=== PATIENT | male | born 1980 ===

== ENCOUNTER 2021-04-18 23:34 | Inpatient (IN) | payer OTHER ==
--- OUTSIDE RECORDS SUMMARY | 2021-04-18 23:38 | XMS REPORT | Continuity of Care Document ---
:1980 Author Organization [facility] Address [address] [place] [address] Dr. Obando [address] [place] [id number] Care Team Providers Name Role Phone Unavailable Unavailable Unavailable Payers Payer Name Policy Type Policy Number Effective Date Expiration Date S chanelle MEDICARE A B [id number] 2007 00:00:00 MEDICAID OF [place] [id number] 2011 00:00:00 Problems This patient has no known problems. Allergies, Adverse Reactions, Alerts This patient has no known allergies or adverse reactions. Medications This patient has no known medications. Procedures This patient has no known procedures. Encounters Start End Encounter Admission Attending Care Care Encounter Source Date/Time Date/Time Type Type Clinicians Facility Department ID 2020-06-30 2020-06-30 Outpatient [facility] [id number] SLE 00:00:00 00:00:00 2020-06-09 2020-06-09 Outpatient [facility] [id number] SLE 00:00:00 00:00:00 Results This patient has no known results.
[2021-04-19 01:40] LABS: SARS-COV-2 RT PCR POSITIVE (NEGATIVE)
[2021-04-19] MEDS ORDERED: NA CHLORIDE 0.9% 1,000 ML ONE (02:10)
[2021-04-19 02:47] LABS: Absolute Lymphocytes (CBC) 0.7 K/uL (0.7-4.9); Hematocrit 43.2 % (39.6-49.0); Lymphocytes % 12.1 % (15.3-44.8); MPV 7.3 fL (7.6-11.3); RBC Red Blood Cell Count 4.39 M/uL (4.33-5.43)
[2021-04-19 02:48] LABS: Protime INR 1.06
[2021-04-19 03:00] LABS: ALT/SGPT 28 U/L (12-78); AST/SGOT 17 U/L (15-37); Albumin 3.4 g/dL (3.4-5.0); Alkaline Phosphatase 73 U/L (45-117); BUN Blood Urea Nitrogen 12 mg/dL (7-18); Bicarbonate 26 mmol/L (21-32); Bilirubin Direct 0.2 mg/dL (0-0.2); Bilirubin Total 0.5 mg/dL (0.2-1.0); Glucose Level 105 mg/dL (74-106); Magnesium 2.1 mg/dL (1.8-2.4); NT PRO-BNP 28 pg/mL (<125); Potassium 4.4 mmol/L (3.5-5.1); Protein, Total 7.7 g/dL (6.4-8.2); Sodium Level 140 mmol/L (136-145); Troponin (Emerg Dept Use Only) < 0.02 ng/mL (0.0-0.045)
[2021-04-19] MEDS ORDERED: CEFTRIAXONE 500 MG/VIAL ONE (03:38)
[2021-04-19] MEDS ORDERED: AZITHROMYCIN 500 MG INJ IVPB ONE (03:38)
--- NOTE | 2021-04-19 03:38 | EDPHYS ---
[facility] Name: Ryley Potter Age: 40 yrs Sex: Male : 1980 Arrival Date: 04/18/2021 Time: 23:38 Bed 19 Private MD: ED Physician Sunny Streeter HPI: 04/19 01:55 This 40 yrs old Male presents to ER via Ambulatory with complaints of Breathing mh7 Difficulty, Fever, Chest Pain, Congestion. 01:55 The patient has shortness of breath at rest, with light activity. Onset: The mh7 symptoms/episode began/occurred yesterday. Duration: The symptoms are intermittent, with no pattern. The patient's shortness of breath is aggravated by coughing, light activity, is alleviated by nothing. Associated signs and symptoms: Pertinent positives: non-productive cough, Runny nose, congestion, Pertinent negatives: chest pain, productive cough, diaphoresis, dizziness, fever, hemoptysis, loss of consciousness, nausea, numbness in extremities, visual changes, vomiting. Severity of symptoms: At their worst the symptoms were moderate last night, in the emergency department the symptoms are unchanged. Historical: - Allergies: 00:26 No Known Allergies; tw5 - Home Meds: 00:26 levothyroxine 100 mcg tab 1 tab once daily [Active]; atorvastatin 10 mg oral tab 1 tab tw5 once daily [Active]; montelukast 10 mg oral tab 1 tab once daily [Active]; Noemí 180 mg Oral tab 1 tab once daily [Active]; azithromycin 1 gram Oral pack 1 packet [Active]; rifampin 300 mg Oral cap 2 caps 2 times per day [Active]; bactrim 10 mg twice daily [Active]; - PMHx: 00:26 Down's Syndrome; High Cholesterol; Hypothyroidism; staph infections; tw5 - Immunization history:: Flu vaccine is up to date. - Social history:: Smoking status: Patient denies any tobacco usage or history of. ROS: 01:55 Constitutional: Negative for fever, chills, and weight loss, Eyes: Negative for injury, mh7 pain, redness, and discharge, ENT: Negative for injury, pain, and discharge, Neck: Negative for injury, pain, and swelling, Cardiovascular: Negative for chest pain, palpitations, and edema, Abdomen/GI: Negative for abdominal pain, nausea, vomiting, diarrhea, and constipation, Back: Negative for injury and pain, : Negative for injury, bleeding, discharge, and swelling, MS/Extremity: Negative for injury and deformity, Skin: Negative for injury, rash, and discoloration, Neuro: Negative for headache, weakness, numbness, tingling, and seizure, Psych: Negative for depression, anxiety, suicide ideation, homicidal ideation, and hallucinations, Allergy/Immunology: Negative for hives, rash, and allergies, Endocrine: Negative for neck swelling, polydipsia, polyuria, polyphagia, and marked weight changes, Hematologic/Lymphatic: Negative for swollen nodes, abnormal bleeding, and unusual bruising. Exam: 01:55 Constitutional: This is a well developed, well nourished patient who is awake, alert, mh7 and in no acute distress. Head/Face: Normocephalic, atraumatic. Eyes: Pupils equal round and reactive to light, extra-ocular motions intact. Lids and lashes normal. Conjunctiva and sclera are non-icteric and not injected. Cornea within normal limits. Periorbital areas with no swelling, redness, or edema. Neck: Trachea midline, no thyromegaly or masses palpated, and no cervical lymphadenopathy. Supple, full range of motion without nuchal rigidity, or vertebral point tenderness. No Meningismus. Chest/axilla: Normal chest wall appearance and motion. Nontender with no deformity. No lesions are appreciated. Cardiovascular: Regular rate and rhythm with a normal S1 and S2. No gallops, murmurs, or rubs. Normal PMI, no JVD. No pulse deficits. Respiratory: Lungs have equal breath sounds bilaterally, clear to auscultation and percussion. No rales, rhonchi or wheezes noted. No increased work of breathing, no retractions or nasal flaring. Abdomen/GI: Soft, non-tender, with normal bowel sounds. No distension or tympany. No guarding or rebound. No evidence of tenderness throughout. Back: No spinal tenderness. No costovertebral tenderness. Full range of motion. Skin: Warm, dry with normal turgor. Normal color with no rashes, no lesions, and no evidence of cellulitis. MS/ Extremity: Pulses equal, no cyanosis. Neurovascular intact. Full, normal range of motion. Neuro: Awake and alert, GCS 15, oriented to person, place, time, and situation. Cranial nerves II-XII grossly intact. Motor strength 5/5 in all extremities. Sensory grossly intact. Cerebellar exam normal. Normal gait. Psych: Awake, alert, with orientation to person, place and time. Behavior, mood, and affect are within normal limits. Vital Signs: 00:24 BP 102 / 59; Pulse 75; Resp 20; Temp 98.1(O); Pulse Ox 94% on R/A; Weight 99.79 kg; tw5 Height 5 ft. 7 in. (170.18 cm); Pain 4/10; 01:14 BP 94 / 55; Pulse 70; Resp 18; Temp 98.7; Pulse Ox 92% on R/A; Pain 0/10; sonali 01:14 BP 92 / 54; Pulse 66; Resp 18; Pulse Ox 97% on 3 lpm NC; Pain 0/10; sonali 02:39 BP 93 / 45; Pulse 71; Resp 18; Pulse Ox 99% on 3 lpm NC; sonali 03:54 BP 108 / 70; Pulse 71; Resp 20; Temp 98.5; Pulse Ox 95% on 3 lpm NC; sonali 00:24 Body Mass Index 34.46 (99.79 kg, 170.18 cm) tw5 MDM: 03:35 Differential diagnosis: Anemia Anxiety Reaction asthma, Bronchitis CHF exacerbation, mh7 Chronic Obstructive Pulmonary Disease Myocardial Infarction pneumonia, Pneumothorax Psychogenic pulmonary edema, reactive airway disease. Data reviewed: vital signs, nurses notes, old medical records, lab test result(s), cardiac enzymes, CBC, electrolytes, EKG, radiologic studies, plain films. Data interpreted: Pulse oximetry: on 4L(s) per nasal canula, is 98 %. Interpretation: acceptable. Counseling: I had a detailed discussion with the patient and/or guardian regarding: the historical points, exam findings, and any diagnostic results supporting the discharge/admit diagnosis, lab results, radiology results, the need for further work-up and treatment in the hospital. Response to treatment: the patient's symptoms have mildly improved after treatment. 03:37 Patient medically screened. mh7 04/19 00:06 Order name: COVID-19/FLU A+B (Document "Date of Onset" if Symptomatic); Complete Time: 5 01:44 04/19 00:06 Order name: Strep; Complete Time: 02:43 5 04/19 01:44 Order name: Basic Metabolic Panel; Complete Time: 03:12 [facility] 04/19 01:44 Order name: CBC with Diff; Complete Time: 03:12 [facility] 04/19 01:44 Order name: LFT's; Complete Time: 03:12 [facility] 04/19 01:44 Order name: Magnesium; Complete Time: 03:12 [facility] 04/19 01:44 Order name: NT PRO-BNP; Complete Time: 03:12 [facility] 04/19 01:44 Order name: PT-INR [facility] 04/19 01:44 Order name: Troponin (emerg Dept Use Only); Complete Time: 03:12 [facility] 04/19 01:54 Order name: Blood Culture Adult (2) [facility] 04/19 01:54 Order name: Lactate [facility] 04/19 01:54 Order name: Procalcitonin [facility] 04/19 02:14 Order name: Throat Culture [facility] 04/19 01:44 Order name: XRAY Chest (1 view) [facility] 04/19 01:44 Order name: EKG; Complete Time: 01:45 [facility] 04/19 01:44 Order name: Cardiac monitoring; Complete Time: 02:12 [facility] 04/19 01:44 Order name: EKG - Nurse/Tech; Complete Time: 02:12 [facility] 04/19 01:44 Order name: IV Saline Lock; Complete Time: 02:12 [facility] 04/19 01:44 Order name: Labs collected and sent; Complete Time: 02:12 [facility] 04/19 01:44 Order name: O2 Per Protocol; Complete Time: 01:45 [facility] 04/19 03:34 Order name: D-Dimer [facility] 04/19 03:58 Order name: CONS Physician Consult [facility] 04/19 03:58 Order name: Heart Healthy [facility] 04/19 04:12 Order name: CT Chest For PE Angio [facility] 04/19 01:44 Order name: O2 Sat Monitoring; Complete Time: 01:45 7 Administered Medications: 02:00 Drug: NS 0.9% 1000 ml Route: IV; Rate: 1000 ml; Site: left forearm; sonali 03:32 Follow up: IV Status: Completed infusion; IV Intake: 1000ml sonali 03:59 Not Given (Physician Discretion; A): Rocephin (cefTRIAXone) 1 grams IV at per protocol sonali once; Given slow IV push per pharmacy instructions 03:59 Not Given (Physician Discretion): AZITHromycin 500 mg IVPB once over 1 hrs; (mix in 250 sonali mL NS) Disposition Summary: 04/19/21 03:37 Hospitalization Ordered Hospitalization Status: Inpatient Admission [facility] Provider: Primitivo De Jesus [facility] Condition: Stable [facility] Problem: new [facility] Symptoms: have improved [facility] Bed/Room Type: Standard [facility] Room Assignment: 403(04/19/21 03:44) mw Diagnosis - Pneumonia due to SARS-associated coronavirus [facility] - Hypoxia [facility] Forms: - Medication Reconciliation Form [facility] - SBAR form [facility] Signatures: Dispatcher [employer] EDMS Ilda Stewart RN RN Sunny Streeter MD MD [facility] Beryl Cardoso tw5 Viviana Driscoll RN RN bo Corrections: (The following items were deleted from the chart) 03:34 03:29 D-DIMER+COAG.LAB.BRZ ordered. EDMI EDMS 03:44 03:37 7
--- NOTE | 2021-04-19 03:38 | ER ---
Nurse's Notes [facility] Name: Ryley Potter Age: 40 yrs Sex: Male : 1980 Arrival Date: 04/18/2021 Time: 23:38 Bed 19 Private MD: Diagnosis: Pneumonia due to SARS-associated coronavirus;Hypoxia Presentation: 04/19 00:25 Chief complaint: Parent and/or Guardian states: " He has been doing some heavy tw5 breathing today and we have a home pulse ox that was showing 88%. He has a history of lower lobe pneumonia.". Coronavirus screen: Vaccine status: Patient reports receiving the 2nd dose of the covid vaccine. Retevo. Ebola Screen: Patient negative for fever greater than or equal to 101.5 degrees Fahrenheit, and additional compatible Ebola Virus Disease symptoms Patient denies exposure to infectious person. Patient denies travel to an Ebola-affected area in the 21 days before illness onset. Initial Sepsis Screen: Does the patient meet any 2 criteria? No. Patient's initial sepsis screen is negative. Does the patient have a suspected source of infection? No. Patient's initial sepsis screen is negative. Risk Assessment: Do you want to hurt yourself or someone else? Patient reports no desire to harm self or others. Onset of symptoms is unknown. 00:25 Method Of Arrival: Ambulatory tw5 00:25 Acuity: SHAMIKA 3 tw5 Triage Assessment: 00:26 General: Appears in no apparent distress. Behavior is calm, cooperative, appropriate tw5 for age. Pain: Unable to use pain scale. Does not appear to understand pain scale. Respiratory: Reports labored breathing Onset: The symptoms/episode began/occurred gradually, the patient has mild shortness of breath. Historical: - Allergies: 00:26 No Known Allergies; tw5 - Home Meds: 00:26 levothyroxine 100 mcg tab 1 tab once daily [Active]; atorvastatin 10 mg oral tab 1 tab tw5 once daily [Active]; montelukast 10 mg oral tab 1 tab once daily [Active]; Noemí 180 mg Oral tab 1 tab once daily [Active]; azithromycin 1 gram Oral pack 1 packet [Active]; rifampin 300 mg Oral cap 2 caps 2 times per day [Active]; bactrim 10 mg twice daily [Active]; - PMHx: 00:26 Down's Syndrome; High Cholesterol; Hypothyroidism; staph infections; tw5 - Immunization history:: Flu vaccine is up to date. - Social history:: Smoking status: Patient denies any tobacco usage or history of. Screenin:33 Abuse screen: Denies threats or abuse. Denies injuries from another. Nutritional tw5 screening: No deficits noted. Tuberculosis screening: No symptoms or risk factors identified. Fall Risk None identified. Assessment: 01:10 Reassessment: family reports pt given trilogy and prednisone 10 mg before arrival. bb 01:14 General: Appears in no apparent distress. Behavior is calm, cooperative, Reports "low sonali O2 sat at home and he's short of breathe", per the pt's parents. 01:14 General: The pt had a vasovagal experience, during the IV start. He quickly came about. sonali His parents remained at bedside. They are very attentive and doting parents, extremely helpful. . Pain: Denies pain. Respiratory: Breath sounds are diminished bilaterally. in left lower lobe and right lower lobe. 02:40 General: A page was sent to Respiratory for the inhaler that was ordered. . sonali 03:29 General: MD is at bedside discussing the POC and the diagnosis with the pt and his sonali parents. . 03:54 General: I called Dr. Reveles about the abx, as the mother said he was writing for sonali Vancomycin. He confirmed that on the phone. The pt has a room assignment and will be taken upstairs roopa. . 03:56 Respiratory: Airway is patent Respiratory effort is even, unlabored. sonali 03:57 Cardiovascular: Rhythm is sinus rhythm. sonali 04:07 General: Pt going to 403 and report was called. . sonali 04:28 General: The pt was taken to CT via , as a scan was ordered. We called admitting to sonali switch the pt to 403 and were waiting for her to arrive. I called, but she was with a pt and was not able to come, so the pt will go to CT and return here, waiting on admitting to "switch it". The pt's mother accompanied him to CT and will return. The pt's O2 sat was 95% on RA. . Vital Signs: 00:24 BP 102 / 59; Pulse 75; Resp 20; Temp 98.1(O); Pulse Ox 94% on R/A; Weight 99.79 kg; tw5 Height 5 ft. 7 in. (170.18 cm); Pain 4/10; 01:14 BP 94 / 55; Pulse 70; Resp 18; Temp 98.7; Pulse Ox 92% on R/A; Pain 0/10; sonali 01:14 BP 92 / 54; Pulse 66; Resp 18; Pulse Ox 97% on 3 lpm NC; Pain 0/10; sonali 02:39 BP 93 / 45; Pulse 71; Resp 18; Pulse Ox 99% on 3 lpm NC; sonali 03:54 BP 108 / 70; Pulse 71; Resp 20; Temp 98.5; Pulse Ox 95% on 3 lpm NC; sonali 00:24 Body Mass Index 34.46 (99.79 kg, 170.18 cm) tw5 ED Course: 04/18 23:38 Patient arrived in ED. ja2 04/19 00:26 Triage completed. tw5 01:14 Resting quietly. with his parents at bedside. sonali 01:14 Patient has correct armband on for positive identification. monitor car operator on. Pulse sonali ox on. NIBP on. Door closed. Lights dimmed. Warm blanket given. Pillow given. Verbal reassurance given. 01:34 Sunny Streeter MD is Attending Physician. mh7 01:42 Viviana Driscoll RN is Primary Nurse. sonali 02:13 Inserted saline lock: 22 gauge in right wrist, using aseptic technique. Blood collected.ds4 02:32 Procalcitonin Sent. sonali 02:32 Lactate Sent. sonali 02:32 Basic Metabolic Panel Sent. sonali 02:32 CBC with Diff Sent. sonali 02:33 LFT's Sent. sonali 02:33 Magnesium Sent. sonali 02:33 NT PRO-BNP Sent. sonali 02:33 PT-INR Sent. sonali 02:33 Troponin (emerg Dept Use Only) Sent. sonali 02:38 Throat Culture Sent. sonali 02:53 XRAY Chest (1 view) In Process Unspecified. EDMS 03:36 Primitivo De Jesus MD is Hospitalizing Provider. mh7 03:40 D-Dimer Sent. sonali 03:41 Blood Culture Adult (2) Sent. sonali 03:41 PT-INR Sent. sonali 03:57 No provider procedures requiring assistance completed. sonali 03:57 Patient admitted, IV remains in place. sonali 03:58 Arm band placed on. sonali Administered Medications: 02:00 Drug: NS 0.9% 1000 ml Route: IV; Rate: 1000 ml; Site: left forearm; sonali 03:32 Follow up: IV Status: Completed infusion; IV Intake: 1000ml sonali 03:59 Not Given (Physician Discretion; A): Rocephin (cefTRIAXone) 1 grams IV at per protocol sonali once; Given slow IV push per pharmacy instructions 03:59 Not Given (Physician Discretion): AZITHromycin 500 mg IVPB once over 1 hrs; (mix in 250 sonali mL NS) Intake: 03:32 IV: 1000ml; Total: 1000ml. sonali Outcome: 03:37 Decision to Hospitalize by Provider. [facility] 03:57 Condition: stable sonali 03:57 Admitted to sonali 04:53 Patient left the ED. sonali Signatures: Dispatcher [employer] EDViviana Oliver, RN RN Ryan Guzman ds4 Sunny Streeter MD MD 7 Anna Vogel Tiffany 5 Viviana Driscoll RN RN sonali
[2021-04-19] MEDS ORDERED: NA CHLORIDE 0.9% 50 ML ONE (03:39)
[2021-04-19] MEDS ORDERED: NA CHLORIDE 0.9% 250 ML ONE ×2 (03:39→03:55)
[2021-04-19] MEDS ORDERED: CEFTRIAXONE 1000 MG/VIAL ONE (03:40)
--- NOTE | 2021-04-19 03:52 | P.HP ---
Certification for Inpatient With expected LOS: >2 Midnights Patient will require the following post-hospital care: None Practitioner: I am a practitioner with admitting privileges, knowledge of patient current condition, hospital course, and medical plan of care. Services: Services provided to patient in accordance with Admission requirements found in Title 42 Section 412.3 of the Code of Federal Regulations Patient History Date of Service: 04/19/21 Reason for admission: Shortness of breath History of Present Illness: 60-year-old male with past medical history of hypothyroidism, HLD, Down syndrome, recurrent MRSA staph pneumonia presented because of increasing shortness of breath since the last 3 days. Patient admits to body aches chest congestion. He denies any nausea vomiting. He admits to some upper abdominal pain which which is more in the epigastric area. He is vaccinated against Covid. On arrival in the ED his O2 sat was reportedly in the low 80s although no documentation of that. He was initiated on escalating oxygen supplementation and currently satting at 99% on 3 L. Is accompanied by the parents who is helping with providing history. Patient's father states typically his symptoms improve with vancomycin administration. His Covid screen is positive. Chest x- ray shows bilateral alveolar infiltrate consistent with Covid pneumonia. He has been admitted for Covid pneumonia with hypoxic respiratory failure Allergies No Known Allergies Allergy (Unverified 07/07/11 22:28) Home Medications: Levothyroxine Sodium [Synthroid] 0.125 mg PO DAILY 07/08/11 Simvastatin 10 mg PO DAILY 07/08/11 - Past Medical/Surgical History Diabetic: No -: Hypothyroidism -: Dyslipidemia -: Down syndrome -: MRSA pneumonia Past Surgical History: Reviewed- Non-Contributory - Social History Smoking Status: Never smoker Smoking therapy provided: No Alcohol use: No CD- Drugs: No Caffeine use: Yes Place of Residence: Home Review of Systems 10-point ROS is otherwise unremarkable Respiratory: Shortness of Breath, SOB with Excertion, Pleuritic Pain Physical Examination - Physical Exam General: Alert, Oriented x3, Cooperative HEENT: Atraumatic, Normocephalic, PERRLA Neck: Supple, 2+ carotid pulse no bruit, JVD not distended Respiratory: Clear to auscultation bilaterally, Normal air movement Cardiovascular: No edema, Regular rate/rhythm, Normal S1 S2 Gastrointestinal: Normal bowel sounds, Soft and benign, Non-distended Musculoskeletal: No clubbing, No swelling Integumentary: No rashes, No breakdown Neurological: Normal speech, Normal strength at 5/5 x4 extr, Normal tone - Studies Laboratory Data (last 24 hrs) 04/19/21 02:09: PT 12.2, INR 1.06 04/19/21 02:09: WBC 6.00, Hgb 14.9, Hct 43.2, Plt Count 236 04/19/21 02:09: Sodium 140, Potassium 4.4, BUN 12, Creatinine 1.05, Glucose 105, Magnesium 2.1, Total Bilirubin 0.5, AST 17, ALT 28, Alkaline Phosphatase 73 Microbiology Data (last 24 hrs): 04/19/21 00:29 Throat Group A Streptococcus Rapid Screen - Final Assessment and Plan - Problems (Diagnosis) (1) Pneumonia due to COVID-19 virus Current Visit: Yes Status: Acute (2) Pneumonia due to severe acute respiratory syndrome coronavirus 2 (SARS-CoV-2) Current Visit: Yes Status: Acute - Plan Covid pneumonia Hypoxic respiratory failure HLD History of hypothyroidism History of MRSA pneumonia Plan -We will admit patient to inpatient status -We will O2 as tolerated -We will start patient on Decadron as well as zinc sulfate -Initiate GI and DVT prophylaxis, resume regular diet -We will consult pulmonary in a.m -Resume home regimen As above patient's father's request, will add vancomycin for superimposed bacterial pneumonia DVT prophylaxis with Lovenox Possible discharge in 2 to 3 days - Advance Directives Does patient have a Living Will: No Does patient have a Durable POA for Healthcare: No Time Spent Managing Pts Care (In Minutes): 65
[2021-04-19] MEDS ORDERED: MORPHINE 2 MG/ML SYR IV PRN (03:53)
[2021-04-19] MEDS ORDERED: ALBUTEROL 2.5 MG/3 ML NEB SOL NEB PRN (03:53)
[2021-04-19] MEDS ORDERED: ACETAMINOPHEN 500 MG TAB PO PRN (03:53)
[2021-04-19] MEDS ORDERED: VANCOMYCIN 1 GM/VIAL ONE ×2 (03:54→08:05)
[2021-04-19] MEDS ORDERED: guaiFENesin 100 MG/5 ML UCUP PO PRN (03:55)
[2021-04-19] MEDS ORDERED: HYDRALAZINE HCL 20 MG/ML VIAL IV PRN (03:55)
[2021-04-19] MEDS ORDERED: BENZONATATE 100 MG CAP PO PRN (03:55)
[2021-04-19 05:44] VITALS: BMI 36.3
[2021-04-19] MEDS: dexAMETHasone 4 MG TAB PO SCH ×4 (06:09→20:28)
[2021-04-19] MEDS: LEVOTHYROXINE SOD 0.1 MG TAB PO SCH (06:09)
[2021-04-19 06:21] LABS: C-Reactive Protein 12.8 mg/L (<3.00); Ferritin 612.1 ng/mL (26-388)
[2021-04-19] MEDS: ENOXAPARIN 40 MG/0.4 ML SQ SCH (08:01)
[2021-04-19] MEDS: ZINC SULFATE 220 MG CAP PO SCH (08:01)
[2021-04-19] MEDS: FAMOTIDINE 20 MG TAB PO SCH ×2 (08:01→20:28)
[2021-04-19] MEDS ORDERED: VANCOMYCIN 1.75 GM in NA CHLORIDE 0.9% 500 ML IVPB SCH (09:00)
[2021-04-19] MEDS ORDERED: VANCOMYCIN 1 GM in NA CHLORIDE 0.9% 250 ML IVPB SCH (09:00)
--- NOTE | 2021-04-19 11:23 | EKG ---
Test Date: 2021-04-19 Test Time: 01:54:01 Rat Culturist: JERMAINE MEASUREMENT RESULTS: Intervals: Rate: 65 CA: 148 QRSD: 84 QT: 384 QTc: 399 Henry: P: 51 CA: 148 QRS: 74 T: 61 INTERPRETIVE STATEMENTS: Normal sinus rhythm Normal ECG Compared to ECG 04/28/2008 07:16:56 No significant changes Electronically Signed On 04-19-21 11:22:11 ENGINE TESTER by Eulalio Obregon
--- NOTE | 2021-04-19 12:31 | RAD REPORT ---
EXAM DESCRIPTION: RAD - Chest Single View - 04/19/2021 2:54 am CLINICAL HISTORY: 40 years, Male, Cough;SOB COMPARISON: None. FINDINGS: Single view of the chest was obtained portable. No prior films are available for compariso n. The heart is in the upper normal size. The thoracic aorta is unremarkable. The pulmonary vascula ture is normal in distribution. No significant pleural effusions and/or focal areas of consolidations . The rest of the soft tissue and bony structures demonstrate to be unremarkable. IMPRESSION: Borderline cardiomegaly perhaps related to technique. No acute cardiopulmonary process. Electronically signed by: Poli Lo MD 04/19/2021 3:31 AM VEHICLE FUEL SYSTEMS CONVERTER Due to temporary technical issues with the PACS/Fluency reporting system, reports are being signed by the in house radiologist without review as a courtesy to ensure prompt reporting. The interpreting r adiologist is fully responsible for the content of the report.
--- NOTE | 2021-04-19 12:32 | RAD REPORT ---
EXAM DESCRIPTION: CT - Chest For Pe Angio - 04/19/2021 7:22 am CLINICAL HISTORY: Shortness of breath COMPARISON: Chest 1 View AP 04/19/2021 at 2:47 AM TECHNIQUE: Chest CTA axial images acquired with IV contrast. Coronal and sagittal CTA MIPs and MPRs created. Exam performed according to departmental dose-optimization program which includes automated exposure control, adjustment of mA and/or kV according to patient size, and/or use of iterative recon struction technique. FINDINGS: Evaluation more difficult due to respiratory motion artifact and suboptimal pulmonary brandon ry contrast opacification. Heart size normal. No pericardial effusion. Thoracic aorta unremarkable without evidence of dissection, aneurysm, or atherosclerotic plaque. No evidence of pulmonary embolism. Central tracheobronchial tree unremarkable. Mild hazy stranding scattered bilateral lung opacities. No consolidation, lung mass, or significant pulmonary edema. No pleural effusion or pneumothorax. Mild lower thoracic spine leftward convex curvature. This may be positional or represent levoscoliosis. IMPRESSION: Evaluation more difficult due to respiratory motion artifact and suboptimal pulmonary ar robert contrast opacification. 1. No CT evidence of large, central, pulmonary embolism. 2. Mild hazy stranding scattered bilateral lung opacities. Causes include pulmonary edema, subsegmental atelectasis, scar/fibrosis, and atypical infection (incl uding viral & COVID). COVID-19 Pneumonia Imaging Classification: Atypical Appearance \X201C\Imaging features are atypical or uncommonly reported for (COVID-19 or viral) pneumonia. Altern ative diagnoses should be considered. PneAty\[id number]\ Electronically signed by: Rakesh Sanchez MD 04/19/2021 6:33 AM [employer] SERVICE [employer]PER[employer]OR Due to temporary technical issues with the PACS/Fluency reporting system, reports are being signed by the in house radiologist without review as a courtesy to ensure prompt reporting. The interpreting r adiologist is fully responsible for the content of the report.
--- NOTE | 2021-04-19 12:45 | P.CNS ---
Date of Consult: 04/19/21 Reason for Consult: COVID pneumonia Chief Complaint: Shortness of breath History of Present Illness: Age 60 AW COVIDpenumoia, C/o INc SOB 3 days , VAccinated AW low sat's Doign well now Allergies No Known Allergies Allergy (Verified 04/19/21 05:14) Home Medications: Atorvastatin Calcium 1 tab PO DAILY 04/19/21 Fluticasone/Umeclidin/Vilanter [Trelegy Ellipta 100-62.5-25] 1 puff IH DAILY 04/19/21 Levothyroxine Sodium [Levothyroxine] 1 cap PO DAILY 04/19/21 Montelukast Sodium 1 tab PO DAILY 04/19/21 - Past Medical/Surgical History Diabetic: No -: Hypothyroidism -: Dyslipidemia -: Down syndrome -: MRSA pneumonia - Social History Smoking Status: Never smoker Alcohol use: No CD- Drugs: No Caffeine use: No Place of Residence: Home Review of Systems 10-point ROS is otherwise unremarkable Physical Examination Temp Pulse Resp BP Pulse Ox 97.9 F 71 17 113/61 93 04/19/21 11:29 04/19/21 11:29 04/19/21 11:29 04/19/21 11:29 04/19/21 11:29 General: Alert, Oriented x3, Cooperative HEENT: Atraumatic Neck: Supple Respiratory: Clear to auscultation bilaterally Cardiovascular: No edema, Regular rate/rhythm Laboratory Data (last 24 hrs) 04/19/21 02:09: PT 12.2, INR 1.06 04/19/21 02:09: WBC 6.00, Hgb 14.9, Hct 43.2, Plt Count 236 04/19/21 02:09: Sodium 140, Potassium 4.4, BUN 12, Creatinine 1.05, Glucose 105, Magnesium 2.1, Total Bilirubin 0.5, AST 17, ALT 28, Alkaline Phosphatase 73 - Problems (1) Pneumonia due to COVID-19 virus Current Visit: Yes Status: Acute Plan: Age 40 AW COVID penumonia Doign well. CT Reviewed. Decadron reduced VAccinated. LAbs reviewed, No Fever or WBC / posss DC am on O2 CW decadron at home. No indication for vancomicin/CW asprin at home
--- NOTE | 2021-04-19 17:00 | P.PN ---
Date of Service: 04/19/21 patient seen this morning on rounds feels about the same as when admitted, with some slight improvement in respirations / cough CT read results pending patient without any new complaints Pulm - Dr. Melchor consulted do not suspect bacterial pneumonia, likely due to COVID, but does have significant h/o pneumonias in the past will discuss further with pulmonology anticipate dc home in next 1-2 days
[2021-04-20] MEDS: LEVOTHYROXINE SOD 0.1 MG TAB PO SCH (06:12)
[2021-04-20 08:02] LABS: Hematocrit 44.9 % (39.6-49.0); Lymphocytes % 14.9 % (15.3-44.8)
[2021-04-20 08:22] LABS: ALT/SGPT 42 U/L (12-78); AST/SGOT 31 U/L (15-37); Albumin 3.2 g/dL (3.4-5.0); Alkaline Phosphatase 81 U/L (45-117); BUN Blood Urea Nitrogen 10 mg/dL (7-18); Bicarbonate 26 mmol/L (21-32); Bilirubin Total 0.2 mg/dL (0.2-1.0); C-Reactive Protein 6.17 mg/L (<3.00); Ferritin 888.4 ng/mL (26-388); Glucose Level 118 mg/dL (74-106); Potassium 3.7 mmol/L (3.5-5.1); Protein, Total 7.3 g/dL (6.4-8.2); Sodium Level 141 mmol/L (136-145)
[2021-04-20] MEDS: ZINC SULFATE 220 MG CAP PO SCH (09:00)
[2021-04-20] MEDS: dexAMETHasone 4 MG TAB PO SCH (09:00)
[2021-04-20] MEDS: ENOXAPARIN 40 MG/0.4 ML SQ SCH (09:01)
[2021-04-20] MEDS: FAMOTIDINE 20 MG TAB PO SCH (09:01)
[2021-04-20 14:08] VITALS: BP 110/63; TEMP 97.5
[2021-04-20 14:21] VITALS: O2SAT 94
--- NOTE | 2021-04-20 17:56 | P.DS ---
Admission Date: 04/19/21 Discharge Date: 04/20/21 Disposition: ROUTINE DISCHARGE Discharge Condition: GOOD Reason for Admission: Shortness of breath Consultations: Pulmonology - Dr. Melchor Procedures: CXR (04/19): FINDINGS: Single view of the chest was obtained portable. No prior films are available for comparison. The heart is in the upper normal size. The thoracic aorta is unremarkable. The pulmonary vasculature is normal in distribution. No significant pleural effusions and/or focal areas of consolidations. The rest of the soft tissue and bony structures demonstrate to be unremarkable. IMPRESSION: Borderline cardiomegaly perhaps related to technique. No acute cardiopulmonary process. CTA (04/19): FINDINGS: Evaluation more difficult due to respiratory motion artifact and suboptimal pulmonary artery contrast opacification. Heart size normal. No pericardial effusion. Thoracic aorta unremarkable without evidence of dissection, aneurysm, or atheros clerotic plaque. No evidence of pulmonary embolism. Central tracheobronchial tree unremarkable. Mild hazy stranding scattered bilateral lung opacities. No consolidation, lung mass, or significant pulmonary edema. No pleural effusion or pneumothorax. Mild lower thoracic spine leftward convex curvature. This may be positional or represent levoscoliosis. IMPRESSION: Evaluation more difficult due to respiratory motion artifact and suboptimal pulmonary artery contrast opacification. 1. No CT evidence of large, central, pulmonary embolism. 2. Mild hazy stranding scattered bilateral lung opacities. Causes include pulmonary edema, subsegmental atelectasis, scar/fibrosis, and atypical infection (including viral & COVID). Problem list Acute hypoxemic respiratory failure secondary to COVID-19 pneumonia Down syndrome Hypothyroidism Hyperlipidemia History of recurrent MRSA pneumonia Brief History of Present Illness: 60-year-old male with past medical history of hypothyroidism, HLD, Down syndrome, recurrent MRSA staph pneumonia presented because of increasing shortness of breath since the last 3 days. Patient admits to body aches chest congestion. He denies any nausea vomiting. He admits to some upper abdominal pain which which is more in the epigastric area. He is vaccinated against Covid. On arrival in the ED his O2 sat was reportedly in the low 80s although no documentation of that. He was initiated on escalating oxygen supplementation and currently satting at 99% on 3 L. Is accompanied by the parents who is helping with providing history. Patient's father states typically his symptoms improve with vancomycin administration. His Covid screen is positive. Chest x- ray shows bilateral alveolar infiltrate consistent with Covid pneumonia. He has been admitted for Covid pneumonia with hypoxic respiratory failure Hospital Course: Patient was admitted, and treated for COVID-19 with steroids and oxygen supplementation. He was initially given a dose of IV vancomycin given his history of MRSA pneumonia in the past. Pulmonology was consulted and recommended discontinuation of antibiotics. He had improvement of his symptoms. Patient was deemed stable to be discharged home with home oxygen He is to continue with p.o. steroid therapy and low-dose aspirin Follow-up with pulmonology in 2 weeks Vital Signs/Physical Exam: Temp Pulse Resp BP Pulse Ox 97.5 F 82 18 110/63 96 04/20/21 12:00 04/20/21 12:00 04/20/21 12:00 04/20/21 12:00 04/20/21 12:00 General: Alert, In no apparent distress HEENT: Sclerae nonicteric Respiratory: Other (nonlabored respirations on 2L NC) Cardiovascular: No edema, Regular rate/rhythm, No murmurs Gastrointestinal: Soft and benign, Non-distended, No tenderness Musculoskeletal: No swelling Integumentary: No rashes, No significant lesion Neurological: Normal speech, Normal affect Laboratory Data at Discharge: WBC 6.80 K/uL (4.3-10.9) 04/20/21 07:47 Hgb 15.3 g/dL (13.6-17.9) 04/20/21 07:47 Hct 44.9 % (39.6-49.0) 04/20/21 07:47 Plt Count 230 K/uL (152-406) 04/20/21 07:47 PT 12.2 SECONDS (9.5-12.5) 04/19/21 02:09 INR 1.06 04/19/21 02:09 Sodium 141 mmol/L (136-145) 04/20/21 07:47 Potassium 3.7 mmol/L (3.5-5.1) 04/20/21 07:47 BUN 10 mg/dL (7-18) 04/20/21 07:47 Creatinine 0.93 mg/dL (0.55-1.3) 04/20/21 07:47 Glucose 118 mg/dL (74-106) H 04/20/21 07:47 Magnesium 2.1 mg/dL (1.8-2.4) 04/19/21 02:09 Total Bilirubin 0.2 mg/dL (0.2-1.0) 04/20/21 07:47 AST 31 U/L (15-37) 04/20/21 07:47 ALT 42 U/L (12-78) 04/20/21 07:47 Alkaline Phosphatase 81 U/L (45-117) 04/20/21 07:47 Home Medications: Atorvastatin Calcium 1 tab PO DAILY 04/19/21 Fluticasone/Umeclidin/Vilanter [Trelegy Ellipta 100-62.5-25] 1 puff IH DAILY 04/19/21 Levothyroxine Sodium [Levothyroxine] 1 cap PO DAILY 04/19/21 Montelukast Sodium 1 tab PO DAILY 04/19/21 dexAMETHasone [Decadron*] 4 mg PO BID 7 Days #14 tab 04/20/21 New Medications: dexAMETHasone [Decadron*] 4 mg PO BID 7 Days #14 tab Physician Discharge Instructions: You are found to have COVID-19 pneumonia, required oxygen supplementation. Your improvement in your symptoms with steroids and oxygen supplementation. Your evaluated by pulmonology, Dr. Murry, underwent chest x-ray and CT scanning of your chest. You initially received IV vancomycin as a precaution given your history. Pulmonology recommended no further need for antibiotics. You are discharged home to continue oral steroids (Decadron), oxygen supplementation, and recommended daily baby aspirin (81 mg). Goal oxygen saturations 92% and above, recommend titrating oxygen supplementation to the lowest setting to maintain this. Follow-up with Dr. Murry in ~1-2 weeks. Call [phone] for any questions regarding hospital stay E-script sent to [facility] in [place] Diet: Regular Activity: Ad hussein Followup: Steven Melchor MD [ACTIVE - CAN ADMIT] - 1-2 Weeks Nilesh Potter MD [Primary Care Provider] - Time spent managing pt's care (in minutes): 45
== END 2021-04-20 14:20 | disposition home or self-care (01) | DRG 177 ==
LOC: ER 23:34 → 4TH 04-19 04:31
PROVIDERS: ADMIT Internal Medicine; ATTEND Hospitalist
DX: U07.1 COVID-19 (principal); J12.82 Pneumonia due to coronavirus disease 2019; J96.01 Acute respiratory failure with hypoxia; Q90.9 Down syndrome, unspecified; E03.9 Hypothyroidism, unspecified; E78.5 Hyperlipidemia, unspecified; R09.02 Hypoxemia; Z79.890 Hormone replacement therapy; Z79.899 Other long term (current) drug therapy; Z86.14 Personal history of Methicillin resistant Staphylococcus aureus infection
CPT/HCPCS: 0240U; 36415; 71045; 71275; 80048; 80053; 80076; 82728; 83605; 83735; 83880; 84145; 84484; 85025; 85379; 85610; 86140; 87040; 87070; 87081; 93005; 94760; 96360; 96361; 99285; J0456; J0696; J1650; J3370; J7030; J7040; J7050; J8540; Q9967